=== PATIENT | female | born 1950 | race Caucasian/White ===

== ENCOUNTER → 2021-02-12 | Day surgery (SDC) | payer MEDICARE, OTHER ==
[~2021-02-12] MED LIST: ARNUITY ELLIPT50 MCG INH; ASPIRIN81 MG PO; CLARITIN10 MG PO; CO Q-10400 MG PO; DIABETA 2.5 MG2.5 MG PO; ELDERBERRY-VIT1 EACH PO; EVISTA 60 MG TA60 MG PO; LEVOTHYROXINE25 MC1 PO; LIPITOR20 MG PO; LISINOPRIL-HCT1 EAC1 PO; OMEGA-31000 MG PO; PROBIOTIC1 EAC1 PO; VITAMIN D21250 MCG PO
== END | disposition home or self-care (01) ==
LOC: OR 05:43
DX: Z12.11 Encounter for screening for malignant neoplasm of colon (principal); I10 Essential (primary) hypertension; E78.5 Hyperlipidemia, unspecified; E03.9 Hypothyroidism, unspecified; I25.10 Atherosclerotic heart disease of native coronary artery without angina pectoris; E11.9 Type 2 diabetes mellitus without complications; G47.30 Sleep apnea, unspecified; F32.A Depression, unspecified; M81.0 Age-related osteoporosis without current pathological fracture; Z86.010 Personal history of colon polyps; Z88.2 Allergy status to sulfonamides; Z79.82 Long term (current) use of aspirin; Z79.84 Long term (current) use of oral hypoglycemic drugs; Z79.899 Other long term (current) drug therapy
CPT/HCPCS: 82962; J2001; J2704; J7030

== ENCOUNTER → 2021-11-09 | Outpatient (CLI) | payer MEDICARE, OTHER | LOC: KOH-I 13:41 | DX: R07.81 Pleurodynia (principal); M47.814 Spondylosis without myelopathy or radiculopathy, thoracic region | CPT/HCPCS: 71101; 72070 ==